=== PATIENT | female | born 1970 | race Hispanic/Latino ===

== ENCOUNTER 2020-04-28 02:52 | Inpatient (IN) | payer SELFPAY ==
[~2020-04-28] VITALS: Ht 152.4 cm; Wt 71.5 kg
[2020-04-28] MEDS ORDERED: ONDANSETRON HCL 4 MG/2 ML VIAL ONE ×2 (03:25→10:06)
[2020-04-28] MEDS ORDERED: PANTOPRAZOLE 40 MG/VIAL ONE (03:25)
[2020-04-28] MEDS ORDERED: FAMOTIDINE/PF 20 MG/2 ML VIAL IV ONE ×2 (03:26→08:27)
[2020-04-28 03:30] LABS: BASOPHILS % (AUTO) 0.3 % (0.0-5.0); EOSINOPHILS % (AUTO) 0.4 % (0.0-8.0); HEMATOCRIT 42.2 % (36-48); LYMPHOCYTES % (AUTO) 13.9 % (21.0-51.0); MEAN CORPUSCULAR HEMOGLOBIN 29.3 pg (27.0-33.0); MEAN CORPUSCULAR HGB CONC 34.6 g/dL (32.0-36.0); MEAN CORPUSCULAR VOLUME 84.6 fL (79-99); MONOCYTES % (AUTO) 4.2 % (3.0-13.0); NEUTROPHILS % (AUTO) 80.7 % (40.0-77.0); PLATELET COUNT (AUTO) 312 K/uL (130-400); RED BLOOD CELL COUNT(AUTO) 4.99 MIL/uL (4.00-5.50); WHITE BLOOD COUNT (AUTO) 17.8 K/uL (4.8-10.8)
[2020-04-28 03:34] LABS: CREATININE 0.8 mg/dL (0.5-1.5); POTASSIUM 3.1 mmol/L (3.5-5.1)
[2020-04-28 03:38] LABS: INR 0.94 (0.85-1.15); PARTIAL THROMBOPLASTIN TIME 27.1 SEC (26.3-35.5); PROTHROMBIN TIME 10.2 SEC (9.6-11.6)
[2020-04-28 03:39] LABS: ALBUMIN 3.7 g/dL (3.5-5.0); BILIRUBIN,TOTAL 0.3 mg/dL (0.2-1.0); TOTAL PROTEIN, SERUM 7.8 g/dL (6.0-8.3)
[2020-04-28] MEDS ORDERED: IOHEXOL-350 75 ML VIAL IV ONE (03:51)
[2020-04-28 03:56] LABS: B-TYPE NATRIURETIC PEPTIDE 6 pg/mL (0-100)
[2020-04-28] MEDS ORDERED: MORPHINE SULFATE 2 MG/ML 1ML SYG ONE ×3 (04:34→10:06)
[2020-04-28] MEDS ORDERED: METOCLOPRAMIDE 10 MG/2 ML VIAL ONE (04:34)
[2020-04-28 05:00] LABS: APPEARANCE,URINE Clear (CLEAR); BILIRUBIN,URINE Negative (NEGATIVE); COLOR,URINE Yellow (YELLOW); GLUCOSE, URINE (UA) Negative (NEGATIVE); KETONES,URINE Negative (NEGATIVE); LEUKOCYTE ESTERASE ,URINE Small (NEGATIVE); NITRATE,URINE Negative (NEGATIVE); OCCULT BLOOD,URINE Nonhemolyzed Trace (NEGATIVE); PH,URINE 7.5 (5.0-8.0); PROTEIN,URINE Negative (NEGATIVE); UROBILINOGEN,URINE 0.2 mg/dL (0.2-1.0)
[2020-04-28 05:10] LABS: BACTERIA,URINE None Seen /HPF (None Seen); WBC,URINE 0-1 /HPF (0-1)
[2020-04-28] MEDS ORDERED: LIDOCAINE HCL-MPF 1% 2ML VIAL IJ PRN (05:30)
[2020-04-28] MEDS ORDERED: ACETAMINOPHEN 650 MG SUPPOSITORY RC PRN ×2 (05:30)
[2020-04-28] MEDS ORDERED: POTASSIUM CHLORIDE 20MEQ/100ML 100 ML IV PRN (05:30)
[2020-04-28] MEDS ORDERED: MAGNESIUM 2GM PREMIX 50ML 50 ML IV PRN (05:30)
[2020-04-28] MEDS ORDERED: IPRATROPIUM/ALBUTEROL SULFATE 3 ML SOLUTION IH PRN (05:30)
[2020-04-28] MEDS ORDERED: NITROGLYCERIN 0.4 MG SL TAB SL PRN (05:30)
[2020-04-28 05:34] LABS: HEMOGLOBIN A1C 5.8 % (4.0-6.0)
[2020-04-28 05:36] LABS: MAGNESIUM 1.7 mg/dL (1.80-2.40)
[2020-04-28] MEDS ORDERED: MAGNESIUM 2GM PREMIX 50ML 50 ML IV ONE (05:59)
[2020-04-28] MEDS ORDERED: MAGNESIUM 2GM PREMIX 50ML 50 ML IV SCH (06:00)
[2020-04-28] MEDS ORDERED: POTASSIUM CHLORIDE 20MEQ/100ML 100 ML IV ONE ×2 (06:00→09:58)
[2020-04-28] MEDS ORDERED: LIDOCAINE HCL-MPF 1% 2ML VIAL ONE ×2 (06:00→09:59)
[2020-04-28] MEDS ORDERED: POTASSIUM CHLORIDE 10MEQ/100ML 10 MEQ/100 ML ML IV SCH (06:00)
[2020-04-28 06:58] LABS: AMPHET/METH SCREEN,URINE NEGATIVE (NEGATIVE); BARBITURATE SCREEN, URINE NEGATIVE (NEGATIVE); BENZODIAZEPINES SCREEN,URINE NEGATIVE (NEGATIVE); CANNABINOID SCREEN,URINE NEGATIVE (NEGATIVE); COCAINE SCREEN,URINE NEGATIVE (NEGATIVE); OPIATE SCREEN,URINE NEGATIVE (NEGATIVE); PHENCYCLIDINE SCREEN,URINE NEGATIVE (NEGATIVE)
[2020-04-28] MEDS ORDERED: METRONIDAZOLE 500MG/100ML BAG 100 ML ONE ×2 (08:25→16:53)
[2020-04-28] MEDS ORDERED: ENOXAPARIN SODIUM 30 MG/0.3 ML SQ ONE (08:25)
[2020-04-28] MEDS: ENOXAPARIN SODIUM 30 MG/0.3 ML SQ SCH (09:00)
[2020-04-28] MEDS: FAMOTIDINE/PF 20 MG/2 ML VIAL IV SCH ×2 (09:00→21:03)
[2020-04-28] MEDS ORDERED: POTASSIUM CHLORIDE 10MEQ/100ML 100 ML IV ONE (12:30)
[2020-04-28] MEDS: METRONIDAZOLE 500MG/100ML BAG 100 ML IVPB SCH ×2 (14:00→22:41)
[2020-04-28] MEDS: LACTATED RINGERS 1000ML 1,000 ML IV SCH ×2 (15:30→18:44)
--- NOTE | 2020-04-28 15:57 | NUR ---
CM NOTE/IA UNABLE TO MET WITH PATIENT AT BEDSIDE. CONCIHTA CAN DID IA. PER PATIENT, LIVES WITH SON, IS INDEPENDENT WITH ADLS, NO USE OF PROVIDERS OR HOME HEALTH, NO USE OF DME AND FEELS SAFE TO RETURN HOME ONCE DISCHARGED. Addendum: 04/28/20 at 1559 by TITUS ANN RN CM Amended: Links added.
[2020-04-28 18:10] VITALS: BP 146/92
[2020-04-28 19:58] VITALS: BP 157/84
[2020-04-28] MEDS: MORPHINE SULFATE 2 MG/ML 1ML SYG IVP PRN (22:47)
[2020-04-28 23:48] VITALS: BP 146/79
[2020-04-29 03:56] VITALS: BP 129/72
[2020-04-29] MEDS: LACTATED RINGERS 1000ML 1,000 ML IV SCH ×3 (05:12→21:30)
[2020-04-29 05:23] LABS: BASOPHILS % (AUTO) 0.3 % (0.0-5.0); EOSINOPHILS % (AUTO) 1.2 % (0.0-8.0); HEMATOCRIT 41.1 % (36-48); LYMPHOCYTES % (AUTO) 17.4 % (21.0-51.0); MEAN CORPUSCULAR HEMOGLOBIN 28.8 pg (27.0-33.0); MEAN CORPUSCULAR HGB CONC 33.8 g/dL (32.0-36.0); MEAN CORPUSCULAR VOLUME 85.3 fL (79-99); MONOCYTES % (AUTO) 6.3 % (3.0-13.0); NEUTROPHILS % (AUTO) 74.5 % (40.0-77.0); PLATELET COUNT (AUTO) 263 K/uL (130-400); RED BLOOD CELL COUNT(AUTO) 4.82 MIL/uL (4.00-5.50); RED CELL DISTRIBUTION WIDTH 13.2 % (11.0-15.5); WHITE BLOOD COUNT (AUTO) 10.6 K/uL (4.8-10.8)
[2020-04-29 05:55] LABS: ALBUMIN 3.1 g/dL (3.5-5.0); BILIRUBIN,TOTAL 0.7 mg/dL (0.2-1.0); CREATININE 0.7 mg/dL (0.5-1.5); MAGNESIUM 2.3 mg/dL (1.80-2.40); TOTAL PROTEIN, SERUM 7.1 g/dL (6.0-8.3)
[2020-04-29] MEDS: METRONIDAZOLE 500MG/100ML BAG 100 ML IVPB SCH ×3 (05:57→21:09)
[2020-04-29] MEDS: FAMOTIDINE/PF 20 MG/2 ML VIAL IV SCH ×2 (07:51→19:58)
[2020-04-29] MEDS: ENOXAPARIN SODIUM 30 MG/0.3 ML SQ SCH (07:51)
[2020-04-29] MEDS: MORPHINE SULFATE 2 MG/ML 1ML SYG IVP PRN (07:55)
[2020-04-29 08:26] VITALS: BP 129/85
[2020-04-29 11:33] VITALS: BP 116/72
--- NOTE | 2020-04-29 14:18 | NUR ---
RD NOTIFICATION Pt admitted with acute Pancreatitis. Pt NPO at time of visit. RD provided Pancreatitis Nutrition Education. Pt reports first episode however Pt has previous knowledge of intolerance to fatty foods. Pt states rarely drinks alcohol. RD reviewed reference materials with Pt. Monitored labs: TG 226, Chol 222, LDL 132, HDL 136, Amylase 746, Lipase 3527. Pt LBM 04/26/20. Obesity Class I. When medically feasible, Recommend advance diet as tolerated to GI Soft/[place], Low Fat diet Order. RD provided Pancreatitis Nutrition Education to Pt. RD to continue to continue to monitor. Please notify as additional nutrition concerns arise. Thank you. Addendum: 04/29/20 at [address] RD Amended: Links added.
--- NOTE | 2020-04-29 14:25 | NUR ---
NUTRITION EDUCATION OPHELIA provided Pancreatitis Nutrition Education to Pt. OPHELIA reviewed reference materials and discussed lifestyle modification with Pt. Pt verbalized understanding. OPHELIA encouraged Pt to notify as additional nutrition concerns arise. Addendum: 04/29/20 at [address] RD Amended: Links added.
[2020-04-29 15:57] VITALS: BP 125/68
[2020-04-29] MEDS: LEVOFLOXACIN 500 MG/D5W 100 ML 100 ML IV SCH (17:41)
--- NOTE | 2020-04-29 18:48 | NUR ---
PAGED DR. CATARINO ANN REGARDING PENDING CONSULT
--- NOTE | 2020-04-29 18:53 | NUR ---
SPOKE WITH DR. ANN REGARDING CONSULT, NO NEED FOR ERCP, PATIENT WILL NEED SURGICAL CONSULT FOR POSSIBLE LAP BERNADINE
[2020-04-29 19:25] VITALS: BP 142/68
[2020-04-29] MEDS: ONDANSETRON HCL 4 MG/2 ML VIAL IV PRN (19:58)
[2020-04-29 23:17] VITALS: BP 124/76
[2020-04-30] MEDS: MORPHINE SULFATE 2 MG/ML 1ML SYG IVP PRN ×2 (02:39→22:01)
[2020-04-30] MEDS: LACTATED RINGERS 1000ML 1,000 ML IV SCH ×2 (02:44→16:37)
[2020-04-30 03:21] VITALS: BP 110/75
[2020-04-30] MEDS: METRONIDAZOLE 500MG/100ML BAG 100 ML IVPB SCH ×3 (05:07→21:54)
[2020-04-30 05:42] LABS: BASOPHILS % (AUTO) 0.3 % (0.0-5.0); EOSINOPHILS % (AUTO) 0.8 % (0.0-8.0); HEMATOCRIT 38.7 % (36-48); LYMPHOCYTES % (AUTO) 23.6 % (21.0-51.0); MEAN CORPUSCULAR HEMOGLOBIN 29.1 pg (27.0-33.0); MEAN CORPUSCULAR HGB CONC 33.9 g/dL (32.0-36.0); MONOCYTES % (AUTO) 6.3 % (3.0-13.0); NEUTROPHILS % (AUTO) 68.6 % (40.0-77.0); PLATELET COUNT (AUTO) 245 K/uL (130-400); RED CELL DISTRIBUTION WIDTH 13.2 % (11.0-15.5)
[2020-04-30 07:00] VITALS: BP 130/73
[2020-04-30] MEDS: ENOXAPARIN SODIUM 30 MG/0.3 ML SQ SCH (09:00)
[2020-04-30] MEDS: FAMOTIDINE/PF 20 MG/2 ML VIAL IV SCH ×2 (10:35→21:54)
[2020-04-30 11:10] VITALS: BP 127/68
[2020-04-30] MEDS ORDERED: ACETAMINOPHEN 325 MG TAB PO PRN (13:45)
--- NOTE | 2020-04-30 14:00 | NUR ---
MET W PATIENT AT BEDSIDE FOR D/C PLANNING. 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 [place] TIME UP BETWEEN HER SONS HOUSE AND HER PARENTS HOUSE. DOES NOT SEE ANY MD, USED TO SEE [employer] MONDRAGON BUT IT HAS BEEN MANY YEARS, PATINET IN A LOT OF PAIN AND DOS NOT WANT TO TALK MORE. Addendum: 04/30/20 at 1900 by VANNESA ALCANTARA RN CM Amended: Links added.
[2020-04-30] MEDS: LEVOFLOXACIN 500 MG/D5W 100 ML 100 ML IV SCH (14:13)
[2020-04-30 16:00] VITALS: BP 121/77
[2020-04-30 17:16] LABS: HEMATOCRIT 37.7 % (36-48); MEAN CORPUSCULAR HEMOGLOBIN 29.2 pg (27.0-33.0); MEAN CORPUSCULAR VOLUME 85.9 fL (79-99); PLATELET COUNT (AUTO) 271 K/uL (130-400); RED BLOOD CELL COUNT(AUTO) 4.39 MIL/uL (4.00-5.50); RED CELL DISTRIBUTION WIDTH 13.1 % (11.0-15.5); WHITE BLOOD COUNT (AUTO) 13.2 K/uL (4.8-10.8)
[2020-04-30 17:34] LABS: BILIRUBIN,TOTAL 0.6 mg/dL (0.2-1.0); CREATININE 0.6 mg/dL (0.5-1.5); POTASSIUM 4.3 mmol/L (3.5-5.1); TOTAL PROTEIN, SERUM 7.2 g/dL (6.0-8.3)
[2020-04-30 18:29] LABS: BASOPHILS % (MANUAL) 2 % (0-2); EOSINOPHILS % (MANUAL) 1 % (1-6); LYMPHOCYTES % (MANUAL) 17 % (22-44); MONOCYTES % (MANUAL) 8 % (2-9); SEGMENTED NEUTROPHILS % 72 % (40-70)
[2020-04-30 18:31] LABS: MAN.DIFF COMMENT-IMPRESSION MANUAL DIFFERENTIAL; PLATELET MORPHOLOGY COMMENT ADEQUATE
[2020-04-30 19:47] VITALS: BP 140/78
[2020-04-30] MEDS: ONDANSETRON HCL 4 MG/2 ML VIAL IV PRN (21:59)
[2020-04-30 23:40] VITALS: BP 120/74
[2020-05-01] VITALS (25 sets, daily range): BP systolic 118–161; BP diastolic 70–86
[2020-05-01] MEDS: LACTATED RINGERS 1000ML 1,000 ML IV SCH ×2 (02:39→21:40)
--- NOTE | 2020-05-01 04:31 | NUR ---
PATIENT UPDATE MEDICATED ONCE LAST NIGHT FOR NAUSEA AND ABDOMINAL PAIN , KEEPING NPO POST MN, PT GOING FOR LAP BERNADINE POSSIBLE OPEN BERNADINE TODAY BY DR. FREGOSO. SLEPT WELL OVERNIGHT, CONTINUES WITH THE IV HYDRATION WITH LR AT 100 CC/HR. VITAL SIGNS STABLE, UP AD DAYA.
[2020-05-01 05:33] LABS: BASOPHILS % (AUTO) 0.3 % (0.0-5.0); EOSINOPHILS % (AUTO) 0.4 % (0.0-8.0); HEMATOCRIT 38.9 % (36-48); LYMPHOCYTES % (AUTO) 13.6 % (21.0-51.0); MEAN CORPUSCULAR HEMOGLOBIN 29.2 pg (27.0-33.0); MEAN CORPUSCULAR HGB CONC 33.7 g/dL (32.0-36.0); MEAN CORPUSCULAR VOLUME 86.6 fL (79-99); MONOCYTES % (AUTO) 6.2 % (3.0-13.0); NEUTROPHILS % (AUTO) 79.1 % (40.0-77.0); PLATELET COUNT (AUTO) 282 K/uL (130-400); RED BLOOD CELL COUNT(AUTO) 4.49 MIL/uL (4.00-5.50); WHITE BLOOD COUNT (AUTO) 11.6 K/uL (4.8-10.8)
[2020-05-01 05:56] LABS: CREATININE 0.7 mg/dL (0.5-1.5); POTASSIUM 3.3 mmol/L (3.5-5.1)
[2020-05-01] MEDS: METRONIDAZOLE 500MG/100ML BAG 100 ML IVPB SCH ×3 (06:01→21:40)
[2020-05-01] MEDS: ENOXAPARIN SODIUM 30 MG/0.3 ML SQ SCH (09:00)
[2020-05-01] MEDS: FAMOTIDINE/PF 20 MG/2 ML VIAL IV SCH ×2 (09:33→21:40)
[2020-05-01] MEDS ORDERED: BUPIVACAINE/PF 0.5% 30ML VIAL ONE (10:16)
[2020-05-01] MEDS ORDERED: ALBUTEROL INHALER 90MCG/INH IH ONE (10:19)
[2020-05-01] MEDS ORDERED: LIDOCAINE PF 2% 5ML ABBOJECT ONE (10:21)
[2020-05-01] MEDS ORDERED: SUCCINYLCHOLINE CHLORIDE 20 MG/ML 10 ML VIAL ONE (10:21)
[2020-05-01] MEDS ORDERED: ROCURONIUM 10MG/1ML SYR 10 MG/ML ML ONE (10:22)
[2020-05-01] MEDS ORDERED: NEOSTIGMINE 5MG/5ML SYR IV ONE (10:22)
[2020-05-01] MEDS ORDERED: GLYCOPYRROLATE 1 MG/5 ML SYRINGE ONE (10:22)
[2020-05-01] MEDS ORDERED: PROPOFOL 10 MG/ML 20ML VIAL IV ONE (10:22)
[2020-05-01] MEDS ORDERED: MIDAZOLAM HCL 1 MG/ML 2ML VIAL ONE (10:23)
[2020-05-01] MEDS ORDERED: FENTANYL CITRATE PF 50 MCG/1 ML 2ML VIAL ONE (10:32)
[2020-05-01] MEDS ORDERED: DEXAMETHASONE SOD PHOSPHATE 4 MG/ML 1ML VIAL ONE (10:32)
[2020-05-01] MEDS ORDERED: ONDANSETRON HCL 4 MG/2 ML VIAL ONE (10:33)
[2020-05-01] MEDS ORDERED: KETOROLAC TROMETHAMINE 30MG/ML ONE (11:09)
[2020-05-01] MEDS ORDERED: MEPERIDINE-PF 25 MG/ML SYG ONE ×2 (11:54→12:04)
[2020-05-01] MEDS: LEVOFLOXACIN 500 MG/D5W 100 ML 100 ML IV SCH (13:08)
[2020-05-01] MEDS ORDERED: POTASSIUM CHLORIDE 20 MEQ ERTAB PO SCH (16:45)
--- NOTE | 2020-05-01 19:10 | NUR ---
PM Assessment Received pt awake lying in bed with LR at 100cc/hr infusing well, routine assessment done, plan of care discuss, per pt claimed has been passing gas, encourage to continue doing IS & ambulate outside in the hallway, agreed, currently denies discomfort claimed feeling a lot better at this time. Followed up regarding her CLD stated tolerated it well, made aware we will start her on regular diet in AM.
--- NOTE | 2020-05-01 20:00 | NUR ---
Re: Ambulation Pt noted has been ambulating in the hallway at this time, with no issues, claimed feeling OK & better.
[2020-05-02 03:58] VITALS: BP 120/74
[2020-05-02] MEDS: METRONIDAZOLE 500MG/100ML BAG 100 ML IVPB SCH (05:33)
[2020-05-02] MEDS: MORPHINE SULFATE 2 MG/ML 1ML SYG IVP PRN (05:36)
[2020-05-02 05:45] LABS: BASOPHILS % (AUTO) 0.2 % (0.0-5.0); HEMATOCRIT 35.3 % (36-48); LYMPHOCYTES % (AUTO) 13.7 % (21.0-51.0); MEAN CORPUSCULAR HEMOGLOBIN 29.8 pg (27.0-33.0); MEAN CORPUSCULAR HGB CONC 34.8 g/dL (32.0-36.0); MEAN CORPUSCULAR VOLUME 85.5 fL (79-99); MONOCYTES % (AUTO) 5.7 % (3.0-13.0); PLATELET COUNT (AUTO) 304 K/uL (130-400); RED BLOOD CELL COUNT(AUTO) 4.13 MIL/uL (4.00-5.50); RED CELL DISTRIBUTION WIDTH 13.2 % (11.0-15.5); WHITE BLOOD COUNT (AUTO) 10.6 K/uL (4.8-10.8)
[2020-05-02 06:02] LABS: ALBUMIN 2.6 g/dL (3.5-5.0); BILIRUBIN,TOTAL 0.4 mg/dL (0.2-1.0); CREATININE 0.6 mg/dL (0.5-1.5); POTASSIUM 3.9 mmol/L (3.5-5.1); TOTAL PROTEIN, SERUM 6.5 g/dL (6.0-8.3)
[2020-05-02 08:23] VITALS: BP 137/72
[2020-05-02] MEDS: LACTATED RINGERS 1000ML 1,000 ML IV SCH (09:30)
[2020-05-02] MEDS: FAMOTIDINE/PF 20 MG/2 ML VIAL IV SCH (10:00)
[2020-05-02] MEDS: ENOXAPARIN SODIUM 30 MG/0.3 ML SQ SCH (10:00)
[2020-05-02 12:00] VITALS: BP 117/93
--- NOTE | 2020-05-02 14:30 | NUR ---
DC PT AWAKE, ALERT, AND ORIENTED. DENIES PAIN OR DISCOMFORT, NO NAUSEA OR EMESIS, NO ABDOMINAL DISCOMFORT. DC HOME INSTRUCTIONS GIVEN TO PT, ACKNOWLEDGED ALL INFORMATION, ALL QUESTIONS AND CONCERNS ANSWERED. 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 ALSO MADE AWARE TO F/U WITH PHYSICIAN THAT DIAGNOSED HER WITH "TUMOR" PER PT. RX FOR TYLENOL #3 GIVEN TO PT. PT MADE AWARE TO DIAL 911 OR RETURN TO ER IN CASE OF EMERGENCY. PT MADE AWARE TO CALL PCP OR SURGEON FOR QUESTIONS OR CONCERNS.
== END 2020-05-02 14:30 | disposition home or self-care (01) | DRG 417 ==
LOC: EDH 02:52 → EDHIP 02:53 → 4BH 18:04
PROVIDERS: ADMIT Internal Medicine; ATTEND Internal Medicine
PROC: 0FT44ZZ Resection of Gallbladder, Percutaneous Endoscopic Approach (ICD-10-PCS; principal; 2020-05-01 10:24)
DX: K80.00 Calculus of gallbladder with acute cholecystitis without obstruction (principal); K85.10 Biliary acute pancreatitis without necrosis or infection; R65.10 Systemic inflammatory response syndrome (SIRS) of non-infectious origin without acute organ dysfunction; E87.6 Hypokalemia; M79.7 Fibromyalgia; M32.9 Systemic lupus erythematosus, unspecified; K82.8 Other specified diseases of gallbladder; K76.0 Fatty (change of) liver, not elsewhere classified; J45.909 Unspecified asthma, uncomplicated; I10 Essential (primary) hypertension; E86.1 Hypovolemia; E78.5 Hyperlipidemia, unspecified; N83.202 Unspecified ovarian cyst, left side; K59.00 Constipation, unspecified; E66.01 Morbid (severe) obesity due to excess calories; Z20.828 Contact with and (suspected) exposure to other viral communicable diseases; Z90.710 Acquired absence of both cervix and uterus; Z98.891 History of uterine scar from previous surgery; Z82.49 Family history of ischemic heart disease and other diseases of the circulatory system; Z68.30 Body mass index [BMI] 30.0-30.9, adult; Z88.0 Allergy status to penicillin
CPT/HCPCS: 36415; 71046; 74177; 74181; 76705; 80048; 80053; 80061; 80305; 81001; 82150; 82550; 83036; 83605; 83690; 83735; 83880; 84132; 84145; 84484; 85025; 85610; 85730; 87040; 87426; 93005; 94664; C9113; G0378; J0330; J1100; J1650; J1885; J1956; J2001; J2175; J2250; J2405; J2704; J2710; J2765; J3010; J3475; J3480; J3490; J7030; J7120; Q9967